=== PATIENT | female | born 1980 | race Caucasian/White ===

== ENCOUNTER 2016-08-08 02:56 | Inpatient (IN) | payer OTHER ==
[~2016-08-08] VITALS: Ht 182.9 cm; Wt 155.1 kg
[~2016-08-08 02:56] MED LIST: Docusate Sodium PO; FERR-74 PO; Hydrocodone/Acetaminophen PO; Ibuprofen PO; PREN1TAB78 PO
[2016-08-08] MEDS ORDERED: fentaNYL-PF 50 mCg/mL 2 mL Inj IVPUSH PRN (08:30)
[2016-08-08] MEDS ORDERED: Oxytocin 30 Units/500 mL LR 30 UNITS in IV Premix 1 EACH IV PRN (08:30)
[2016-08-08] MEDS ORDERED: Sodium Chloride LOK Flush 10 mL Syringe IVFLUSH PRN (08:30)
[2016-08-08] MEDS ORDERED: Methylergonovine 0.2 mg/mL Inj IM PRN (08:30)
[2016-08-08] MEDS: Lactated Ringer's 1,000 ML IV SCH ×2 (08:30→16:30)
[2016-08-08] MEDS ORDERED: diphenhydrAMINE 50 mg Capsule PO PRN (08:30)
[2016-08-08] MEDS ORDERED: Carboprost 250 mCg/mL Inj IM PRN (08:30)
[2016-08-08] MEDS ORDERED: Lactated Ringer's 1,000 ML IV PRN (08:30)
[2016-08-08] MEDS ORDERED: Oxytocin 10 Unit/mL Inj IM PRN (08:30)
[2016-08-08] MEDS ORDERED: Ondansetron 2 mg/mL 2 mL Inj IVPUSH PRN (08:30)
[2016-08-08] MEDS ORDERED: Hemorrhage Kit, Post Partum XX ONE (08:30)
[2016-08-08 08:52] LABS: Mean Corpuscular Hemoglobin 31.9 pg (27.0-35.0); Mean Corpuscular Volume 93.1 fL (81-100)
[2016-08-08] MEDS: Misoprostol 25 mCg/0.25 Tablet VAGINAL SCH ×3 (08:55→16:59)
[2016-08-09] MEDS: Lactated Ringer's 1,000 ML IV SCH ×3 (00:30→16:30)
[2016-08-09] MEDS: Misoprostol 25 mCg/0.25 Tablet VAGINAL SCH ×7 (00:30→20:30)
[2016-08-09] MEDS ORDERED: Misoprostol 25 mCg/0.25 Tablet VAGINAL ONE (10:00)
[2016-08-09] MEDS ORDERED: Oxytocin 30 Units/500 mL LR 30 UNITS in IV Premix 1 EACH IV PRN (15:55)
[2016-08-10] MEDS ORDERED: CeFAZolin Inj 2 GM in IV Premix 1 EACH IV ONE (10:25)
[2016-08-10] MEDS ORDERED: Sodium Citrate-Citric Acid 15 mL Solution PO SCH (10:25)
--- NOTE | 2016-08-10 10:41 | PCM.HPANE ---
Patient Data Date of Service: Aug 10, 2016 Surgeon Admitting Provider:Omari Pacheco MD Attending Provider:Omari Pacheco MD Primary Care Physician:Yeny Other Provider:Doug Sosa Anesthesia Reason for Visit Induction INDUCTION Ht/WT & BMI Height (Centimeters): 183 Weight (Kilograms): 155 Body Mass Index Allergies Coded Allergies: No Known Allergies (Unverified , 07/15/14) Past Anesthesia History Anesthesia History: Denies:: Abnormal Airway, Anesthesia Reactions, Difficult Intubation, Fam Anesthesia Reaction, Fam Malignant Hypertherm, Malignant Hyperthermia Diabetes History Hx Diabetes?: No MRSA MRSA: No Medications Hypertension Medication: No Home Meds Incl Beta Shalom: No Active Scripts [Hydrocodone/Acetaminophen] (Carmichaels 5-325)1 TAB TABLET No Conflict Check1-2 Tab PO Q4H PRN For Pain #10 TABLET Ref 0 Prov:Omari Pacheco MD 07/19/14 [Ibuprofen] (Motrin)800 MG TABLET No Conflict [id number] Mg PO Q6H PRN For Pain # 30 TABLET Ref 1 Prov:Omari Pacheco MD 07/19/14 Ferrous Sulfate (Feosol)325 Mg [id number] Mg PO BIDWM #30 TABLET Ref 1 Prov:Omari Pacheco MD 07/19/14 [Docusate Sodium] (Colace)100 MG CAPSULE No Conflict [id number] Mg PO BID #60 CAPSULE Ref 1 Prov:Omari Pacheco MD 07/19/14 Reported Medications Vits W-Ca,Fe,FA(<1Mg) ( Formula)1 Each Tablet1 Each PO DAILY 07/15/14 History History of ENT Problems?: No HEENT History: Denies:: Abnormal Airway Cataracts Difficult Intubation Dysphagia Glaucoma Hearing Problem Sinus Problem TMJ Denture Type: None Teeth Condition: Within Normal Limits Hx of Heart Problems?: No Cardiovascular History: Denies:: AICD Abdominal Aortic Aneurism Atrial Fibrillation Cardiac Surgery Chest Pain Congestive Heart Failure Coronary Artery Disease Edema Heart Murmur Hypertension Irregular Heartbeat Pacemaker Peripheral Vascular Rheumatic Fever Thrombophlebitis Valvular Heart Disease Hx of Respiratory Problem?: No Respiratory History: Denies:: Asthma COPD Chest Surgery Cough Dyspnea Emphysema Hemoptysis Oxygen Administration Pneumonia Pulmonary Embolism Tuberculosis Use of C-PAP Machine Use of Inhalers / NEBS Hx Neurologic Problems?: No Neurological History: Denies:: Alzheimer's Disease CVA Dementia Dizziness Headaches Multiple Sclerosis Parkinson's Disease Peripheral Neuropathy Seizures TIA Hx of GI Problems?: No Gastrointestinal History: Denies:: Cirrhosis Diverticulitis Gall Bladder Disease Gastroesphageal Reflux Gastrointestinal Bleeding Heartburn Hepatitis Hiatal Hernia Liver Disease Rectal Bleeding Hx of Problems?: No Genitourinary History: Denies:: HX of Hemodialysis Kidney Stones Urinary Tract Infection Female Hx: Positive for:: Currently Hx Musculoskeletal Problems?: No Musculoskeletal History: Denies:: Back Injury Degenerative Joint Fibromyalgia Joint Replacement Musculoskeletal Trauma Myasthenia Gravis Osteoarthritis Rheumatoid Arthritis Systemic Lupus Hx of Psycho/Social Problems?: No Hx Surgeries?: No Hx Any Other Health Problems?: No Hx Diabetes: No Hx Alcohol Use: NoHx Substance Use: No Smoking Status: Never Smoker Stop/Bang Risk Assessment Category Category 1A: Patient has history of documented sleep apnea, and HAS NOT received any narcotic, sedative or anesthesia administration during this stay. Category 1B: Patient has history of documented sleep apnea, and HAS received any narcotic , sedative or anesthesia administration during this stay Category 2: Patient has SUSPECTED Obstructive Sleep Apnea, and HAS received any narcotic , sedative or anesthesia administration during this stay. Category 3: Patient has SUSPECTED Obstructive Sleep Apnea and HAS NOT received narcotic, sedative or anesthesia administration during this stay. Category 4: Outpatient in Procedural Areas with known sleep apnea or who screen positive for High Risk via the STOP/BANG questionnaire. Exam Exam General Appearance: Alert, Oriented X3, Cooperative, No Acute Distress HEENT/AIRWAY: MP 2 Lungs: Normal Air Movement Heart: Exam Unremarkable Meds/Labs/Diagnostics Labs Test 08/08/16 08:25 White Blood Count 7.0th/mm3 (3.8-10.1) Red Blood Count 4.08mil/mm3 (3.90-5.20) Hemoglobin 13.0g/dL (12.0-15.6) Hematocrit 38.0% (35.0-46.0) Mean Corpuscular Volume 93.1fL (81-100) Mean Corpuscular Hemoglobin 31.9pg (27.0-35.0) Mean Corpuscular Hemoglobin Concent 34.2% (32.0-37.0) Red Cell Distribution Width 12.9% (12.3-15.4) Platelet Count 162bil/L (150-400) Hold Purple Top Tube Received (Received) Plan Impression Patient chart reviewed, patient interviewed and anesthestic plan with risks, benefits, and alternatives discussed, and informed consent obtained. NPO per Anesth. Guidelines: Yes ASA Physical Status: ASA2 Mod Systemic Disease Anesthetic Plan: SAB Bene/Risks/Altern/Consents: Yes HP Complete Prior to Induction: Yes Bryson Norman MD Aug 10, 2016 10:41
--- NOTE | 2016-08-10 10:43 | PCM.PNOBIP ---
Subjective Date of Service Aug 09, 2016 Delivery plan: Spontaneous Vaginal Delivery Subjective see written note. No progress. Cytotec x 3 and cervidil x 1. Gastrointestinal: Good Appetite Activity: Ambulating Independently Labs Laboratory Tests 08/08/16 08:25: White Blood Count 7.0, Red Blood Count 4.08, Hemoglobin 13.0, Hematocrit 38.0, Mean Corpuscular Volume 93.1, Mean Corpuscular Hemoglobin 31.9, Mean Corpuscular Hemoglobin Concent 34.2, Red Cell Distribution Width 12.9, Platelet Count 162, Hold Purple Top Tube Received Exam Vital Signs Vital Signs Contraction frequency in minutes: MVUs: Vital Signs: VS reviewed, stable Heart Tracings Heart Tones Baseline bpm Heart Rate Category: I Tocometry/IUPC Contraction frequency in minutes: irregular MVUs: Sterile Vaginal Exam Cervical Dilation: 1 cm Cervical Effacement: 50 % Station: -3 Exam Abdomen: Fundus firm Extremities: No cords Heart: Exam Unremarkable General: Alert, Oriented X3 OB Intrapartum Assessment/Plan Assessment No progress in stage 1 Problems: (1) macrosomia during Status: Acute ICD Code: O36.60X0 (2) Obesity affecting Status: Acute ICD Code: E66.9 (3) Post-dates Plan: Place another cytotec. If no better by 1 pm, will AROM if able. Status: Acute ICD Code: O48.0 Intrapartum plan: AROM Intrapartum Pain Management: May have epidural when desired Pain Evaluation: Adequate Pain Control Omari Pacheco MD Aug 10, 2016 10:43
[2016-08-10] MEDS ORDERED: Morphine PF 1 mg/mL 10 mL Inj ONE (10:47)
--- NOTE | 2016-08-10 10:48 | PCM.PNOBIP ---
Subjective Date of Service Aug 10, 2016 Delivery plan: Primary Ceserean Delivery Subjective No real progress after pitocin all day/night. Gastrointestinal: Good Appetite Activity: Ambulating Independently Labs Laboratory Tests 08/08/16 08:25: White Blood Count 7.0, Red Blood Count 4.08, Hemoglobin 13.0, Hematocrit 38.0, Mean Corpuscular Volume 93.1, Mean Corpuscular Hemoglobin 31.9, Mean Corpuscular Hemoglobin Concent 34.2, Red Cell Distribution Width 12.9, Platelet Count 162, Hold Purple Top Tube Received Exam Vital Signs Vital Signs Contraction frequency in minutes: MVUs: Heart Tracings Heart Tones Baseline bpm Heart Rate Category: I Tocometry/IUPC Contraction frequency in minutes: MVUs: Sterile Vaginal Exam Cervical Dilation: 2 cms Cervical Effacement: 70 % Station: -3 Exam Abdomen: Fundus firm Extremities: No cords Lungs: Normal Air Movement Heart: Exam Unremarkable General: Alert, Oriented X3 OB Intrapartum Assessment/Plan Problems: (1) macrosomia during Status: Acute ICD Code: O36.60X0 (2) Obesity affecting Status: Acute ICD Code: E66.9 (3) Post-dates Plan: Failed induction. Consent for done. She is wanting this and we have made no progress over three days. Status: Acute ICD Code: O48.0 Intrapartum plan: AROM Intrapartum Pain Management: May have epidural when desired Pain Evaluation: Adequate Pain Control VTE Mechanical Devices: Intermittant Pneumatic CD Omari Pacheco MD Aug 10, 2016 10:47
[2016-08-10] MEDS ORDERED: Lactated Ringer's 1,000 ML IV PRN (11:48)
[2016-08-10] MEDS ORDERED: Dexamethasone 4 mg/mL Inj IVPUSH PRN (11:50)
[2016-08-10] MEDS ORDERED: Ondansetron 2 mg/mL 2 mL Inj IVPUSH PRN (11:50)
[2016-08-10] MEDS ORDERED: Atropine 0.4 mg/mL Inj IV PRN (11:50)
[2016-08-10] MEDS ORDERED: EPHEDrine Sulfate 50 mg/mL Inj IVPUSH PRN (11:50)
[2016-08-10] MEDS ORDERED: fentaNYL-PF 50 mCg/mL 2 mL Inj IVPUSH PRN (11:50)
[2016-08-10] MEDS ORDERED: MetoCLOpramide 5 mg/mL 2 mL Inj IVPUSH PRN (11:50)
[2016-08-10] MEDS: Lactated Ringer's 1,000 ML IV SCH ×2 (12:24→20:24)
[2016-08-10] MEDS ORDERED: HYDROcodone-APAP 5-325 mg Tablet PO PRN (12:25)
[2016-08-10] MEDS ORDERED: Hemorrhage Kit, Post Partum XX ONE (12:25)
[2016-08-10] MEDS ORDERED: Oxytocin 10 Unit/mL Inj IM PRN (12:25)
[2016-08-10] MEDS ORDERED: Oxytocin 30 Units/500 mL LR 30 UNITS in IV Premix 1 EACH IV PRN (12:25)
[2016-08-10] MEDS ORDERED: hydrOXYzine Pamoate 25 mg Capsule PO PRN (12:25)
[2016-08-10] MEDS ORDERED: Carboprost 250 mCg/mL Inj IM PRN (12:25)
[2016-08-10] MEDS ORDERED: diphenhydrAMINE 50 mg Capsule PO PRN (12:25)
[2016-08-10] MEDS ORDERED: Methylergonovine 0.2 mg/mL Inj IM PRN (12:25)
[2016-08-10] MEDS ORDERED: LANOlin HPA 7 Gm Ointment TOPICAL PRN (12:25)
[2016-08-10] MEDS ORDERED: Sodium Chloride LOK Flush 10 mL Syringe IVFLUSH PRN (12:25)
--- NOTE | 2016-08-10 12:39 | PCM.ANEP1 ---
Post Anesthesia PACU Phase 1 Assessment Date of Service: Aug 10, 2016 Vital Signs VSS see nurses notes or anesthesia record Anesthetic Administered: SAB Level of Alertness: Awake, talking PRIETO's with Equal Strength: No Pain: No Nausea or Vomiting: No CV Function & Hydration Stable: Yes Airway Device: Oxygen Delivery: Room Air Lungs: Normal Air Movement PACU Phase 2 Assessment Complications: No Follow up Care: N/A Patient Instructions Provided: N/A Bryson Norman MD Aug 10, 2016 12:39
[2016-08-10] MEDS: Acetaminophen IV 1,000 MG in IV Premix 1 EACH IV PRN ×2 (17:10→23:11)
--- NOTE | 2016-08-11 01:25 | OP ---
[address] [address] OPERATIVE REPORT PATIENT: STEFFI PEGUERO : 1980 MR#: [id number] ADMIT: 08/08/2016 JOB ID: [id number] DATE OF SURGERY: 08/11/2016 PREOPERATIVE DIAGNOSIS(ES): 1. 2 para 1 female at 41-1/2 weeks estimated gestational age. 2. Post-dates . 3. History of macrosomia with concern for the same with this . 4. Maternal obesity with a body mass index of 46. POSTOPERATIVE DIAGNOSIS(ES): 1. 2 para 2 female now post primary . 2. Failed induction for unknown reason. 3. 8 lb 10 oz in setting of prior macrosomia 4. Maternal obesity with a body mass index of 46. OPERATION: Primary low transverse section via Pfannenstiel incision. SURGEON: Omari Pacheco MD ANODE ADJUSTER: Jesús Lizama MD ANESTHESIA: Spinal. INDICATIONS: The patient presented on August 08 in the morning for induction and had received three doses of Cytotec, one dose of Cervidil, and about 16 hours of Pitocin without significantly altering her cervix. She had been fingertip 50% and posterior with her cervical exam and, at the time of decision for , she was 1-2 cm, 70%, -3, and mid position. She had had irregular contractions at best, and had only felt minimal discomfort from the contractions at any point. I had artificially ruptured her membranes with clear fluid resulting and this still did not help her progress under the help of Pitocin. The presumption was that the baby was possibly too big or in the wrong position. The patient was running out of energy for the induction as well. Her desire was for a section given the option of going back to other forms of induction. Of note is that a Souza balloon had been attempted to be placed but her pelvis was too deep and the cervical angle was too difficult to place the Souza bulb. For all these reasons, the decision for a was made. COMPLICATIONS: None. FINDINGS: 1. A vigorous female with Apgars of 9 and 9. 2. Large baby, but not as large as her last baby likely. Weight is not known at this time. 3. Normal uterus, tubes, and ovaries. ESTIMATED BLOOD LOSS: 800 cc. INTRAVENOUS FLUIDS: In, 1700 cc of lactated Ringer's. URINE OUT: 200 cc of clear urine at the end of the procedure. PATHOLOGY SENT: None. DETAILS OF PROCEDURE: The patient was taken back to the OR where spinal anesthesia was performed. Ancef 2 g were given to her prior to the surgery. A procedural time-out was performed. The patient's spinal block was tested and found to be adequate. Once this was done, the low transverse incision was made on the patient's abdomen and carried through in a Pfannenstiel fashion down to the fascia. The fascia was incised in the midline and this incision was carried laterally in each direction using the Enriquez scissors. Fascia was elevated both superiorly and inferiorly with Venessa clamps and the underlying muscle was dissected off using the Enriquez scissors. Once this had been done, a defect in the central portion of the muscle was noted and this was entered using our fingers. The peritoneal layer was also entered bluntly in the similar fashion. The peritoneal and muscle layers were stretched with the help of my recruitment and outreach assistant. Once this had been done, the bladder blade was inserted and the bladder flap was created using the Metzenbaum scissors. The bladder blade was reinserted. A uterine incision was made using the knife. The final entry into the uterus was with the back of the knife to avoid damage to the underlying fetus. The uterine incision was extended using bandage scissors. Once this had been done, the vertex was easily delivered, as were her shoulders. The cord was clamped and cut, and the baby was handed off to the waiting respiratory therapist. Cord blood was sent for analysis. Once all this had been done, the placenta was manually extracted. The placenta appeared normal but the cord was relatively thin and without much Pilar's jelly. The uterus was next exteriorized and cleared of all clots and debris and membranes. Once this had been done, the uterine incision was marked using Allis clamps. The bladder blade was reinserted. The uterus was closed using 1-0 chromic in a running, locked fashion. A second imbricating layer was performed. This was done using 1-0 chromic suture as well. Tueemb-[id number] sutures on the left lateral aspect of the uterine incision were necessary to stop bleeding in that corner. Once all bleeding had been stopped, the pelvis and abdomen were irrigated. The uterus was then replaced back into the pelvis. It was noted to be firm and Pitocin was running. No additional agents were necessary. The uterine incision was re-examined several times, and no bleeding was found. A layer of Interceed was then placed over the uterine wound. Once this had been done, 2-0 chromic suture was used to bring the abdominal muscle together in a running fashion. Care was taken to avoid the underlying structures. The fascia was closed next using 0 Vicryl in a running fashion. Subcutaneous bleeders were stopped using the Bovie and then the subcutaneous tissue was irrigated. The deeper layers of the subcutaneous tissue were brought together using 2-0 plain suture in a running fashion. This was done due to the patient's higher body mass index. The wound was brought together using lyly and a pressure dressing was applied. The patient was in excellent condition following the procedure and counts were correct x3. She was taken back to her preoperative room. JEFF
[2016-08-11] MEDS: Lactated Ringer's 1,000 ML IV SCH (04:24)
[2016-08-11 07:33] LABS: Mean Corpuscular Hemoglobin 31.9 pg (27.0-35.0); Mean Corpuscular Volume 93.5 fL (81-100)
[2016-08-11] MEDS: oxyCODONE-Acetamin 5-325 mg Tablet PO PRN ×4 (08:12→20:28)
[2016-08-11] MEDS ORDERED: Oxytocin 10 Unit/mL Inj ONE (11:08)
[2016-08-11] MEDS ORDERED: Ondansetron 2 mg/mL 2 mL Inj ONE (11:08)
[2016-08-11] MEDS ORDERED: Dexamethasone 4 mg/mL Inj ONE (11:08)
--- NOTE | 2016-08-11 12:11 | PCM.PNOBPP ---
Subjective Date of Service Aug 11, 2016 Post : Primary Ceserean Delivery Lochia: Normal Pain Management: PO pain meds Gastrointestinal: Good Appetite Postop Activity: Ambulating Independently Labs Laboratory Tests 08/08/16 08:25: Hold Purple Top Tube Received 08/11/16 07:20: White Blood Count 10.9, Red Blood Count 3.39, Hemoglobin 10.8, Hematocrit 31.7, Mean Corpuscular Volume 93.5, Mean Corpuscular Hemoglobin 31.9, Mean Corpuscular Hemoglobin Concent 34.1, Red Cell Distribution Width 12.9, Platelet Count 147 Exam Vital Signs Vital Signs: VS reviewed, stable Exam Abdomen: Fundus firm Extremities: No cords Lungs: Clear to Auscultation Heart: Exam Unremarkable General: Alert, Oriented X3 Surgical Wound : Incision General Appearence: Tamela, Well Approximated Dressing & Drainage Status: Dressing Removed OB Post Assessment/Plan Problems: (1) Status post primary low transverse section Status: Acute ICD Code: Z98.891 Pain Evaluation: Adequate Pain Control VTE Mechanical Devices: Intermittant Pneumatic CD Post plan: Continue routine post care, Discharge home tomorrow Omari Pacheco MD Aug 11, 2016 12:11
[2016-08-12] MEDS: oxyCODONE-Acetamin 5-325 mg Tablet PO PRN ×3 (00:40→09:14)
--- NOTE | 2016-08-12 08:36 | PCM.DC.OB ---
Obstetrical Discharge Summary Date of Service Aug 12, 2016 Date of hospital admission Aug 08, 2016 at 07:07 Date of Discharge: Aug 12, 2016 Providers Admitting Physician: Omari Fields MD Primary Care Physician: Nopelaine Attending Physician: Omari Fields MD Problems: (1) Status post primary low transverse section Status: Acute ICD Code: Z98.891 Consultations None Invasive procedures 1. Failed induction 2. Primary LTCS Date of Procedure: Aug 10, 2016 Hospital Course: Patient was admitted for post dates induction and concern for a repeat case of macrosomia. Her last baby was 10 lbs. She did not progress with induction over several days and trying everything. was done and went without complication. She recovered very well. ([Docusate Sodium]) 100 MG CAPSULE 100 MG PO BID Prescribed by: OMARI FIELDS MD ([Ibuprofen]) 800 MG TABLET 800 MG PO Q6H PRN PRN For Pain Prescribed by: OMARI FIELDS MD ([Hydrocodone/Acetaminophen]) 1 TAB TABLET 1-2 TAB PO Q4H PRN PRN For Pain Prescribed by: OMARI FIELDS MD Ferrous Sulfate (Feosol) 325 Mg Tablet 325 MG PO BIDWM Prescribed by: OMARI FIELDS MD Vits W-Ca,Fe,FA(<1Mg) ( Formula) 1 Each Tablet 1 EACH PO DAILY (Reported) Follow-up plan See me at two weeks and 8 weeks. Discharge Diet: No restrictions Discharge Activity-General: Pelvic Rest for 6 weeks, Try not to overdue, Be up and about, Activity as pain allows, Activity as energy allows, No lifting >15 pounds for 2 weeks Omari Fields MD Aug 12, 2016 08:36
--- NOTE | 2016-08-12 08:38 | PCM.DIOB ---
Obstetrical Disch Instruction Dates of Hospitalization Date of Hospital Admission Aug 08, 2016 at 07:07 Providers Admitting Physician: Omari Pacheco MD Primary Care Physician: Yeny Attending Physician: Omari Pacheco MD Discharge Diagnosis Problems: (1) Status post primary low transverse section Status: Acute ICD Code: Z98.891 Diet Discharge Diet: No restrictions Activity Discharge Activity-General: Pelvic Rest for 6 weeks, Balance rest and activity , Activity as pain allows, Activity as energy allows, No lifting >15 pounds for 2 weeks Dressing and Incisional Care Dressing Care: Allow Steri Stripes to fall off Hygiene: May shower, NO bathtub, hot tub or whirlpool Follow Up Plan Follow-up Provider (F9): Omari Pacheco MD Follow-up appointment: Weeks (2) Call your provider for: Fever or Chills, Shortness of breath, Heavy vaginal bleeding, Heavy bleeding, Excessive constipation, Red painful breasts Omari Pacheco MD Aug 12, 2016 08:38
[2016-08-12] MEDS ORDERED: IBUP800T28 PO (08:39)
[2016-08-12] MEDS ORDERED: OXYC1TAB24 PO (08:39)
[2016-08-12] MEDS ORDERED: DOCU-41 PO (08:39)
[2016-08-12 08:59] VITALS: BP 141/67; PULSE 68; RESP 18
== END 2016-08-12 11:34 | disposition home or self-care (01) | DRG 765 ==
LOC: FBC 07:07
PROVIDERS: ADMIT Family Medicine; ATTEND Family Medicine
PROC: 3E0P7GC Introduction of Other Therapeutic Substance into Female Reproductive, Via Natural or Artificial Opening (ICD-10-PCS; 2016-08-08)
PROC: 10D00Z1 Extraction of Products of Conception, Low, Open Approach (ICD-10-PCS; principal; 2016-08-11)
DX: O36.63X0 Maternal care for excessive fetal growth, third trimester, not applicable or unspecified (principal); Z68.42 Body mass index [BMI] 45.0-49.9, adult; O99.214 Obesity complicating childbirth; E66.9 Obesity, unspecified; O48.0 Post-term pregnancy; Z3A.41 41 weeks gestation of pregnancy; Z37.0 Single live birth; O61.9 Failed induction of labor, unspecified